=== PATIENT | male | born 1980 | race Caucasian/White ===

== ENCOUNTER 2017-09-02 13:08 | Emergency (ER) | payer MEDICAID ==
[~2017-09-02] VITALS: Ht 170.2 cm; Wt 94.3 kg
[2017-09-02 13:18] VITALS: Ht 170.2 cm; Wt 94.3 kg
[2017-09-02 15:17] VITALS: BP 128/85
== END 2017-09-02 15:17 | disposition home or self-care (01) ==
LOC: ED 13:08
DX: I86.1 Scrotal varices (principal); Z98.52 Vasectomy status